=== PATIENT | male | born 1925 | race Caucasian/White ===

== ENCOUNTER → 2016-05-09 | Outpatient (CLI) | payer MEDICARE, BC ==
[~2016-05-09] MED LIST: ASCO-324 PO; ASPI-558 PO; ATOR20TA PO; BISA10SU8 RECTALLY; CALC-1118 PO; CLOP75TA33 PO; CRAN300T PO; DILT120C43 PO; FINA5TAB42 PO; FURO40TA5 PO; GABA-185 PO; LEVO125T70 PO; LOSA50TA17 PO; LUTE10TA2; LUTE1CAP4 BOTH EYES; MEMA10TA21 PO; NITR0.4T39 SL; OMEP20CA10 PO; ONDA4TAB7 PO; PHEN95TA25 PO; POLY17PO6 PO; POTA-81 PO; SENN-111 PO; SODI15DR7 BOTH EYES; SOTA80TA42 PO; TAMS0.4C20 PO; VENL75CA46 PO
== END ==
LOC: LABN.A1215 19:16 → LABNH.A215 19:16
PROVIDERS: ATTEND Specialist
DX: Z12.6 Encounter for screening for malignant neoplasm of bladder (principal)
CPT/HCPCS: 88112

== ENCOUNTER → 2016-05-10 | Outpatient (CLI) | payer MEDICARE, BC ==
[2016-05-10 07:53] LABS: ANION GAP 12 MEQ/L (5-15); BUN/CREATININE RATIO 19 RATIO (6-26); CALCIUM 8.7 MG/DL (8.4-10.2); CHLORIDE 106 MEQ/L (98-107); CO2 - CARBON DIOXIDE 25 MEQ/L (22-30); CREATININE 0.8 MG/DL (0.8-1.5); GLOMERULAR FILTRATION RATE 91; GLUCOSE 105 MG/DL (75-110); POTASSIUM 4.2 MEQ/L (3.6-5); SODIUM 143 MEQ/L (134-144)
== END ==
LOC: LABNH.A215 01:11
PROVIDERS: ATTEND Family Medicine
DX: Z12.6 Encounter for screening for malignant neoplasm of bladder (principal); R60.9 Edema, unspecified
CPT/HCPCS: 36415; 80048; P9604